=== PATIENT | female | born 1995 | race African-American/Black ===

== ENCOUNTER 2019-12-01 10:19 | Emergency (ER) | payer OTHER, SELFPAY ==
[2019-12-01 10:28] VITALS: BP 111/66; PULSE 87; RESP 16; TEMP 36.9; O2SAT 100
--- NOTE | 2019-12-01 10:41 | ED.NAVMDI ---
HPI - Nausea/Vomiting/Diarrhea General Chief complaint: Nausea/Vomiting/Diarrhea Stated complaint: nausea/fatigue Time Seen by Provider: 12/01/19 10:36 Source: patient and RN notes reviewed Mode of arrival: ambulatory Limitations: no limitations History of Present Illness HPI Narrative: Patient presents today with a 5-day history of nausea, chills, sweats. She had diarrhea for the first 2 days of her illness, but none since then. Denies vomiting. Denies any known fever. Denies any additional symptoms to include abdominal pain, sore throat. States symptoms have been improving, but the nausea persists. She has tried no [id number] interventions at home prior to arrival. States she left work today for evaluation, and needs a work note. Denies any recent sexual activity or possibility of . MD elicited complaint: nausea Related Data Home Medications Medication Instructions Recorded Confirmed dextroamphetamine-amphetamine 12/01/19 dextroamphetamine-amphetamine PO 12/01/19 paroxetine HCl mg PO 12/01/19 Allergies Allergy/AdvReac Type Severity Reaction Status Date / Time No Known Allergies Allergy Verified 04/29/19 19:37 Review of Systems Review of Systems: Narrative: CONSTITUTIONAL: Denies body aches, fever, chills, or sweats. EYES: Denies visual changes, redness, or discharge. ENT: Denies rhinorrhea, congestion, sore throat, or otalgia. CARDIOVASCULAR: Denies chest pain, palpitations, or edema. RESPIRATORY: Denies cough or dyspnea. GASTROINTESTINAL: Denies abdominal pain, vomiting, or diarrhea.+ Nausea GENITOURINARY: Denies dysuria or hematuria. SKIN: Denies rash, itching, or wounds. MUSCULOSKELETAL: Denies back pain, joint pain, or myalgia. NEUROLOGIC: Denies headache, numbness, tingling, or weakness. PSYCH: Denies depression or anxiety. PMFSH Comments At time of signature, I have reviewed and agree with nursing past medical, surgical, social and family history unless otherwise noted. Please see nursing chart for further information. There is no relevant family history pertinent to the presenting complaint Exam Narrative: Exam Narrative: GENERAL: Well-appearing, well-nourished, and in no acute distress. HEAD: Normocephalic, atraumatic. EYES: EOMI. No redness or drainage. Conjunctivae normal. ENT: Mucous membranes pink and moist. Nares clear. No rhinorrhea. NECK: Normal AROM. Supple. No lymphadenopathy. CHEST: No respiratory distress. Clear to auscultation. HEART: Regular rate and rhythm. No murmur appreciated. Normal peripheral pulses. ABDOMEN: Soft, nontender, nondistended, normal active bowel sounds. MUSCULOSKELETAL: No bony tenderness. EXTREMITIES: Normal range of motion. No edema. SKIN: Warm, dry, no rash. NEURO: No focal deficits. Alert and oriented x3. Gait steady. PSYCH: Normal affect. No signs of depression or anxiety. Course Vital Signs Vital signs: Vital Signs Temperature 98.4 F 12/01/19 10:28 Pulse Rate 87 12/01/19 10:28 Respiratory Rate 16 12/01/19 10:28 Blood Pressure 111/66 12/01/19 10:28 Pulse Oximetry 100 12/01/19 10:28 Temperature 98.4 F 12/01/19 10:28 Pulse Rate 87 12/01/19 10:28 Respiratory Rate 16 12/01/19 10:28 Blood Pressure 111/66 12/01/19 10:28 Pulse Oximetry 100 12/01/19 10:28 Reviewed MDM - Nausea/Vomiting/Diarrhea Differential Diagnosis Differential diagnosis: Likely food poisoning, gastroenteritis and dehydration Critical Care Time Critical Care Time Critical Care Time: No Discharge Plan Discharge Clinical Impression: Nausea, Viral syndrome Patient Disposition: Home, Self-Care Condition: Stable Instructions: Acute Nausea and Vomiting (ED) Additional Instructions: Your symptoms are likely due to a viral illness, which is not treated with antibiotics. Take the Zofran as prescribed for nausea and vomiting. Symptoms should start to resolve in the next few days. As discussed, please go the
== END 2019-12-01 10:50 | disposition home or self-care (01) ==
PROVIDERS: Emergency Provider Nurse Practitioner
DX: R11.0 Nausea (principal); B34.9 Viral infection, unspecified
CPT/HCPCS: 99213; G0463

== ENCOUNTER 2020-02-03 12:23 | Emergency (ER) | payer OTHER, SELFPAY ==
[2020-02-03 12:35] VITALS: BP 127/89; PULSE 92; RESP 18; TEMP 37.3; O2SAT 100
--- NOTE | 2020-02-03 12:37 | ED.DENTAL ---
HPI - Dental/Oral General Chief complaint: Dental/Oral Stated complaint: Tooth pain Time Seen by Provider: 02/03/20 12:34 Source: patient and RN notes reviewed Mode of arrival: ambulatory Limitations: no limitations History of Present Illness HPI Narrative: 24-year-old female presents with concern for dental pain. She reports pain for approximately 1 month but got worse yesterday. She denies any recent dental work, problems with her teeth. Reports she has not seen a dentist since she was a child. She denies fever, swollen face, difficulty swallowing. MD Complaint: tooth pain Related Data Home Medications Medication Instructions Recorded Confirmed dextroamphetamine-amphetamine 10 mg DIRECTED 12/01/19 02/03/20 dextroamphetamine-amphetamine 30 mg PO DAILY 12/01/19 02/03/20 paroxetine HCl 20 mg PO DAILY 12/01/19 02/03/20 Allergies Allergy/AdvReac Type Severity Reaction Status Date / Time No Known Allergies Allergy Verified 02/03/20 12:38 Review of Systems Review of Systems: Narrative: CONSTITUTIONAL: Denies malaise, chills, sweats, or fever. ENT: Denies rhinorrhea, congestion, sinus pain, otalgia or sore throat. Reports left lower dental pain CARDIOVASCULAR: Denies chest pain, palpitations RESPIRATORY: Denies cough or dyspnea. SKIN: Denies facial swelling MUSCULOSKELETAL: Denies myalgia. NEUROLOGIC: Denies numbness, weakness, or headache. All systems reviewed & are unremarkable except as noted in HPI and below PMFSH Social History Social History Gender identity (if verbalized by the patient): Female Comments At time of signature, agree with nursing past medical, surgical, social and family history. There is no relevant family history pertinent to the presenting complaint Exam Narrative: Exam Narrative: GENERAL: Well-appearing, well-nourished, and in no acute distress. HEAD: Normocephalic, atraumatic. EYES: PERRLA, conjunctivae clear ENT: Nares clear. Mucous membranes moist.Oropharynx without edema, erythema or lesions. Tooth #19 broken with caries, no periapical abscess noted NECK: Supple. No lymphadenopathy. CHEST: No respiratory distress. Clear to auscultation. No bony deformities, no asymmetry. Speaks in full sentences. HEART: Regular rate and rhythm. No murmur heard. SKIN: Warm, dry, no rash. NEURO: Alert and oriented x3. No focal deficits. Cranial nerves II through XII grossly intact PSYCH: Normal mood and affect Course Course Emergency Course: Patient is aware of diagnosis, understands and agrees to treatment plan. Anticipatory guidance given. Patient agrees to follow-up as directed and is aware of reasons to seek care at the emergency department. Portions of this record may have been created with voice recognition software Vital Signs Vital signs: Vital Signs Temperature 99.1 F 02/03/20 12:35 Pulse Rate 92 02/03/20 12:35 Respiratory Rate 18 02/03/20 12:35 Blood Pressure 127/89 02/03/20 12:35 Pulse Oximetry 100 02/03/20 12:35 Temperature 99.1 F 02/03/20 12:35 Pulse Rate 92 02/03/20 12:35 Respiratory Rate 18 02/03/20 12:35 Blood Pressure 127/89 02/03/20 12:35 Pulse Oximetry 100 02/03/20 12:35 Reviewed. Patient has been instructed to follow up with her primary care provider within the next week regarding her elevated blood pressure today. MDM - Dental/Oral MDM Narrative Medical decision making narrative: Patients pain and complaint coupled with physical findings are consistant with dentalgia. There are no focal signs of space occupying lesions that are compromising to the airway; no dysphagia, odynophagia, dysphonia, or dyspnea. No uvular deviation or soft palate edema. Patient is non-toxic appearing. The floor of the mouth is soft with no signs of Luis's Angina; no induration below mandible, no neck pain. Patient is without trismus or drooling and able to swallow secretions. Patient is felt appropriate for discharge home with dental follow up. Cr
== END 2020-02-03 12:47 | disposition home or self-care (01) ==
PROVIDERS: Emergency Provider Nurse Practitioner; PCP Emergency Medicine
DX: K08.89 Other specified disorders of teeth and supporting structures (principal); F90.9 Attention-deficit hyperactivity disorder, unspecified type; F32.9 Major depressive disorder, single episode, unspecified
CPT/HCPCS: 99213; G0463

== ENCOUNTER 2020-03-14 10:21 | Emergency (ER) | payer OTHER, SELFPAY ==
[2020-03-14 10:31] VITALS: BP 121/77; PULSE 100; RESP 18; TEMP 36.3; O2SAT 100
--- NOTE | 2020-03-14 10:38 | ED.DENTAL ---
HPI - Dental/Oral General Chief complaint: Dental/Oral Stated complaint: tooth pain Time Seen by Provider: 03/14/20 10:36 Source: patient and RN notes reviewed Mode of arrival: ambulatory Limitations: no limitations History of Present Illness HPI Narrative: 24-year-old female presents with left lower dental pain. Reports broken tooth, had an infection approximately a month ago that was successfully treated with antibiotics. Reported pain started again yesterday. Reports she found a dentist, has to get an appointment. She denies drooling, difficulty swallowing, fever, malaise. Denies new tooth injury. MD Complaint: tooth pain Location: Tooth # (19) Related Data Home Medications Medication Instructions Recorded Confirmed dextroamphetamine-amphetamine 10 mg DIRECTED 12/01/19 02/03/20 dextroamphetamine-amphetamine 30 mg PO DAILY 12/01/19 02/03/20 paroxetine HCl 20 mg PO DAILY 12/01/19 02/03/20 medroxyprogesterone mg IM 03/14/20 03/14/20 Allergies Allergy/AdvReac Type Severity Reaction Status Date / Time No Known Allergies Allergy Verified 02/03/20 12:38 Review of Systems Review of Systems: Narrative: Narrative: CONSTITUTIONAL: Denies malaise, chills, sweats, or fever. ENT: Denies rhinorrhea, congestion, sinus pain, otalgia or sore throat. Reports left lower dental pain CARDIOVASCULAR: Denies chest pain, palpitations RESPIRATORY: Denies cough or dyspnea. SKIN: Denies facial swelling MUSCULOSKELETAL: Denies myalgia. NEUROLOGIC: Denies numbness, weakness, or headache. All systems reviewed & are unremarkable except as noted in HPI and below PMFSH Social History Social History Gender identity (if verbalized by the patient): Female Comments At time of signature, agree with nursing past medical, surgical, social and family history. There is no relevant family history pertinent to the presenting complaint Exam Narrative: Exam Narrative: Exam Narrative: GENERAL: Well-appearing, well-nourished, and in no acute distress. HEAD: Normocephalic, atraumatic. EYES: PERRLA, conjunctivae clear ENT: Nares clear. Mucous membranes moist.Oropharynx without edema, erythema or lesions. Tooth #19 broken with caries, no periapical abscess noted NECK: Supple. No lymphadenopathy. CHEST: No respiratory distress. Clear to auscultation. No bony deformities, no asymmetry. Speaks in full sentences. HEART: Regular rate and rhythm. No murmur heard. SKIN: Warm, dry, no rash. NEURO: Alert and oriented x3. No focal deficits. Cranial nerves II through XII grossly intact PSYCH: Normal mood and affect Course Course Emergency Course: Discussed with patient importance of follow-up with dentist for resolution to ongoing dental infection and pain. Patient reports she will call her dentist on Monday. Patient is aware of diagnosis, understands and agrees to treatment plan. Anticipatory guidance given. Patient agrees to follow-up as directed and is aware of reasons to seek care at the emergency department. Portions of this record may have been created with voice recognition software Vital Signs Vital signs: Vital Signs Temperature 97.4 F L 03/14/20 10:31 Pulse Rate 100 03/14/20 10:31 Respiratory Rate 18 03/14/20 10:31 Blood Pressure 121/77 03/14/20 10:31 Pulse Oximetry 100 03/14/20 10:31 Temperature 97.4 F L 03/14/20 10:31 Pulse Rate 100 03/14/20 10:31 Respiratory Rate 18 03/14/20 10:31 Blood Pressure 121/77 03/14/20 10:31 Pulse Oximetry 100 03/14/20 10:31 Reviewed. MDM - Dental/Oral MDM Narrative Medical decision making narrative: Patients pain and complaint coupled with physical findings are consistant with dentalgia. There are no focal signs of space occupying lesions that are compromising to the airway; no dysphagia, odynophagia, dysphonia, or dyspnea. No uvular deviation or soft palate edema. Patient is non-toxic appearing. The floor of the mouth is soft with no signs of Luis's Angina; no induration bel
== END 2020-03-14 10:47 | disposition home or self-care (01) ==
PROVIDERS: Emergency Provider Nurse Practitioner; PCP Emergency Medicine
DX: K08.89 Other specified disorders of teeth and supporting structures (principal)
CPT/HCPCS: 99213; G0463

== ENCOUNTER 2024-01-31 17:57 | Emergency (ER) | payer OTHER, SELFPAY ==
[2024-01-31 18:19] VITALS: BP 137/79; PULSE 92; RESP 16; TEMP 36.4; O2SAT 100
[2024-01-31 18:21] VITALS: BP 137/79; PULSE 92; RESP 16; TEMP 36.4; O2SAT 100
--- NOTE | 2024-01-31 18:41 | ED.EXTPRO ---
HPI - Extremity Problem General Chief complaint: Extremity Problem,Nontraumatic Stated complaint: toe swelling and pain Time Seen by Provider: 01/31/24 18:33 Source: patient and RN notes reviewed Mode of arrival: ambulatory Limitations: no limitations History of Present Illness HPI Narrative: Patient presents today complaining of pain to her left great toe. Symptoms began 6 days ago and have been worsening since onset. Symptoms began after she trimmed her toenail. She has been cleaning with antibacterial soap and applying Neosporin without relief. Related Data Allergies Allergy/AdvReac Type Severity Reaction Status Date / Time No Known Allergies Allergy Verified 01/31/24 18:20 Review of Systems Review of Systems: CONSTITUTIONAL: Denies body aches, fever, chills, or sweats. EYES: Denies visual changes, redness, or discharge. ENT: Denies rhinorrhea, congestion, sore throat, or otalgia. CARDIOVASCULAR: Denies chest pain, palpitations, or edema. RESPIRATORY: Denies cough or dyspnea. GASTROINTESTINAL: Denies abdominal pain, nausea, vomiting, or diarrhea. GENITOURINARY: Denies dysuria or hematuria. SKIN: Denies rash, itching, or wounds. MUSCULOSKELETAL: Denies back pain, or myalgia.+ left great toe pain NEUROLOGIC: Denies headache, numbness, tingling, or weakness. PSYCH: Denies depression or anxiety. ON LICENSE OF [facility] Past Medical History Medical History ADHD Anxiety BMI 30.0-30.9,adult BMI 31.0-31.9,adult BMI 32.0-32.9,adult BMI 35.0-35.9,adult BMI 36.0-36.9,adult BMI 38.0-38.9,adult BMI 39.0-39.9,adult Depression Encounter to establish care Hyperlipidemia Tachycardia Vapes nicotine containing substance Family History Family History Grandparent Hypertension Heart disease Cerebrovascular accident Mother Depression Thyroid disorder Social History Social History Smoking status: Current every day smoker Tobacco type: e-cigarettes/vaping Alcohol intake: current Alcohol use details: Rarely Substance use: never Substance use type: does not use Lack of Transportation: No Lack of Food: Never True Current Housing: I Have Housing Concerned About Future Housing: No Difficulty Paying Gas/Electric Bills: No Difficulty Paying for Meds: No Currently Unemployed: No Education: High School Diploma/GED Difficulty w/ Childcare or Family Care: No Gender identity (if verbalized by the patient): Female Comments At time of signature, I have reviewed and agree with nursing past medical, surgical, social and family history unless otherwise noted. Please see nursing chart for further information. There is no relevant family history pertinent to the presenting complaint Exam Narrative: GENERAL: Well-appearing, well-nourished, and in no acute distress. HEAD: Normocephalic, atraumatic. EYES: EOMI. No redness or drainage. Conjunctivae normal. ENT: Mucous membranes pink and moist. NECK: Normal AROM. CHEST: No respiratory distress. EXTREMITIES: Left great toe: Tenderness and localized swelling with mild erythema to the medial nail fold. Nail has been turned very low. No drainage noted. No subungual abscess noted. No tenderness to the cuticle. Distal sensation intact. Capillary refill normal. Full range of motion of the toe. SKIN: Warm, dry, no rash. Capillary refill normal. Normal skin turgor. NEURO: No focal deficits. Alert and oriented x3. Gait steady. PSYCH: Normal affect. No signs of depression or anxiety. Course Course Level of Care: Express Care Visit Vital Signs Vital signs: Vital Signs Temperature 97.6 F 01/31/24 18:19 Pulse Rate 92 01/31/24 18:19 Respiratory Rate 16 01/31/24 18:19 Blood Pressure 137/79 01/31/24 18:19 Pulse Oximetry 100 01/31/24 18:19 Oxygen Delivery Room Air 01/31/24 18:19 Temperature 97.6 F 0
== END 2024-01-31 18:45 | disposition home or self-care (01) ==
PROVIDERS: Emergency Provider Nurse Practitioner; PCP Nurse Practitioner Family
DX: L60.0 Ingrowing nail (principal); F17.290 Nicotine dependence, other tobacco product, uncomplicated; E78.5 Hyperlipidemia, unspecified; F90.9 Attention-deficit hyperactivity disorder, unspecified type; F41.9 Anxiety disorder, unspecified; F32.A Depression, unspecified
CPT/HCPCS: 99213; G0463

== ENCOUNTER 2024-09-16 09:50 | Outpatient (CLI) | payer OTHER, SELFPAY ==
--- NOTE | 2024-09-16 10:01 | ECG_ITS ---
Test Date: 2024-09-16 10:15:56 Measurements Intervals Boyd Rate: 107 P: 30 MI: 129 QRS: 11 QRSD: 71 T: 22 QT: 360 QTc: 481 Interpretive Statements SINUS TACHYCARDIA ABNORMAL ECG No previous ECG available for comparison Electronically Signed On 09-16-2024 10:35:57 ANATOMIC PATHOLOGIST by Juan Carlos Quiroz D.O.
== END 2024-09-16 09:51 | disposition home or self-care (01) ==
LOC: ANHCARD 09:53
PROVIDERS: PCP Nurse Practitioner Family; Visit Provider Nurse Practitioner Family
DX: R00.0 Tachycardia, unspecified (principal); R94.31 Abnormal electrocardiogram [ECG] [EKG]
CPT/HCPCS: 93005